=== PATIENT | female | born 1985 | race Caucasian/White ===

== ENCOUNTER 2022-10-13 16:40 | Emergency (ER) | payer BC, SELFPAY ==
--- NOTE | ~2022-10-13 | XR_ITS ---
EXAMINATION: XR foot RT min 3V DATE: 10/13/2022 17:13 INDICATION: Nontraumatic right heel pain TECHNIQUE: Dorsoplantar, two oblique and lateral views of the right foot were obtained. COMPARISON: None. FINDINGS: Bone alignment is normal. No fracture. Joint spaces are normal. No erosions. Small plantar calcaneal spur. Soft tissues are unremarkable. IMPRESSION: 1. Small plantar calcaneal spur. No acute osseous abnormality. Reviewed, dictated and finalized at location A.
[2022-10-13 16:54] VITALS: BP 132/95; PULSE 81; RESP 16; TEMP 36.4; O2SAT 98
--- NOTE | 2022-10-13 17:04 | ED.EXTPRO ---
HPI - Extremity Problem General Chief complaint: Extremity Problem,Nontraumatic Stated complaint: Right Foot Pain History of Present Illness HPI Narrative: patient presents with a 6 day history of right heel pain. no injury to foot or heel. no bruising no deformity and no swelling noted. pain to heel with weight bearing. worse in am. patient works as a nurse at [employer]. Related Data Home Medications Medication Instructions Recorded Confirmed metoprolol succinate 25 mg mg PO 10/13/22 tablet,extended release 24 hr topiramate 25 mg tablet mg 10/13/22 venlafaxine 37.5 mg mg PO 10/13/22 capsule,extended release 24 hr Allergies Allergy/AdvReac Type Severity Reaction Status Date / Time sertraline Allergy Unknown Dyspnea / Verified 03/12/15 17:59 SOB Review of Systems Review of Systems: CONSTITUTIONAL: Denies fever, chills, or sweats. EYES: Denies visual changes, redness, or discharge. ENT: Denies rhinorrhea, congestion, sore throat, or otalgia. CARDIOVASCULAR: Denies chest pain, palpitations, or edema. RESPIRATORY: Denies cough or dyspnea. GASTROINTESTINAL: Denies abdominal pain, nausea, vomiting, or diarrhea. GENITOURINARY: Denies dysuria or hematuria. SKIN: Denies rash or itching. MUSCULOSKELETAL: Denies back pain, joint pain, or myalgia. NEUROLOGIC: Denies headache, numbness, or weakness. PSYCHIATRIC: Denies anxiety or depression. PMFSH Comments At time of signature, agree with nursing past medical, surgical, social and family history. There is no relevant family history pertinent to the presenting complaint Exam Narrative: GENERAL: Well-appearing, well-nourished, and in no acute distress. HEAD: Normocephalic, atraumatic. EYES: PERRLA and EOMI. ENT: Nares clear, no rhinorrhea or epistaxis. Mucous membranes moist. NECK: Supple. CHEST: Clear to auscultation. No respiratory distress. HEART: Regular rate and rhythm. No murmur heard. Normal peripheral pulses. ABDOMEN: Soft, nontender, nondistended, normal active bowel sounds. EXTREMITIES: Normal range of motion. No edema. NORMAL DP PULSE, NORMAL CAP REFILL. NORMAL SENSATION. NVI. NO TENDERNESS TO FOOT SENSATION NVI NORMAL DORSALIS PEDIS PULSE. NORMAL MOVEMENT OF ALL TOES. NORMAL CAPILLARY REFILL. NORMAL SKIN COLOR. NO SKIN LESIONS SKIN iNTACT NO CALF PAIN NO CALF TENDERNESS NOCALF SWELLING NORMAL ROM OF KNEE.KIN INTACT. NORMAL DP PULSE, NORMAL CAP REFILL. NORMAL SENSATION. SKIN: Warm, dry, no rash. NEURO: No focal deficits. Alert and oriented x3. [place] Coma Scale Eye Opening: Spontaneous 4 [place] Coma Scale Motor: Obeys Commands 6 [place] Coma Scale Verbal: Oriented 5 [place] Coma Scale Total 15 Course Course Level of Care: Express Care Visit Vital Signs Vital signs: Vital Signs Temperature 36.4 C L 10/13/22 16:54 Pulse Rate 81 10/13/22 16:54 Respiratory Rate 16 10/13/22 16:54 Blood Pressure 132/95 H 10/13/22 16:54 Pulse Oximetry 98 10/13/22 16:54 Oxygen Delivery Room Air 10/13/22 16:54 Temperature 36.4 C L 10/13/22 16:54 Pulse Rate 81 10/13/22 16:54 Respiratory Rate 16 10/13/22 16:54 Blood Pressure 132/95 H 10/13/22 16:54 Pulse Oximetry 98 10/13/22 16:54 Oxygen Delivery Room Air 10/13/22 16:54 Discharge Plan Discharge Clinical Impression: Heel pain, Heel spur Patient Disposition: Home, Self-Care Condition: Stable Instructions: Heel Spur (ED) Additional Instructions: heel cushions good shoes with support follow up with podiatist Prescriptions: No Action venlafaxine 37.5 mg capsule,extended release 24hr PO topiramate 25 mg tablet metoprolol succinate 25 mg tablet extended release 24 hr PO Follow-up/Referrals: Cesar,MD Jenni [Primary Care Provider] - Stand Alone Forms: Work/School Release IP
== END 2022-10-13 17:41 | disposition home or self-care (01) ==
PROVIDERS: Emergency Provider Nurse Practitioner Family; PCP Family Medicine
DX: M77.31 Calcaneal spur, right foot (principal)
CPT/HCPCS: 73630; 99203; G0463

== ENCOUNTER 2023-03-05 17:56 | Emergency (ER) | payer BC, SELFPAY ==
--- NOTE | ~2023-03-05 | XR_ITS ---
EXAMINATION: XR lumbar spine 2-3V DATE: 03/05/2023 22:39 INDICATION: Low back pain TECHNIQUE: Anteroposterior and lateral views of the lumbar spine, and cone-down lateral view of the l umbosacral junction were obtained. COMPARISON: None. FINDINGS: Normal alignment. Vertebral body and disc heights are normal. Mild lower lumbar facet osteoarthritis. Bilateral hip and sacroiliac joints appear normal. Sacral arches are intact. No acute fractures. Int ernal fixation as seen at one of the hips were there appears to be a subtrochanteric fracture. IMPRESSION: 1. Mild lower lumbar facet osteoarthritis. Reviewed, dictated and finalized at location A. [employer] CLAIM[employer] REPRESENTATIVE
[2023-03-05 18:23] VITALS: BP 149/97; PULSE 73; RESP 16; O2SAT 100
[2023-03-05 21:54] VITALS: BP 138/97; PULSE 68; RESP 16; O2SAT 99
[2023-03-05] MEDS: ACETAMINOPHEN 500 MG TABLET 1000 MG PO (22:43)
[2023-03-05] MEDS: KETOROLAC 30 MG/ML VIAL (*BKC) IM (22:44)
[2023-03-05] MEDS: methocarbamoL 750 MG TABLET PO (22:44)
[2023-03-05] MEDS: LIDOCAINE 5% PATCH 1 PATCH TRANSDERM (22:44)
--- NOTE | 2023-03-05 22:57 | ED.BACK ---
HPI - Back Pain/Injury General Chief Complaint: Back Pain/Injury Stated Complaint: low back pain Time Seen by Provider: 03/05/23 22:00 History of Present Illness HPI Narrative: This is a 37-year-old female, with no significant past medical history, who presents to the emergency department complaining of low back pain for the past 2 weeks. Patient denies any recent trauma or falls. She denies the pain is dull, rated 6/10 without obvious aggravating or alleviating factors. She denies weakness, numbness, loss of bowel or bladder control or loss of sensation in the groin. She states she was seen by her primary care doctor approximately 1 week ago started on Robaxin without significant improvement. She states labs, including blood work and urinalysis were done at that time were unremarkable. Related Data Home Medications Medication Instructions Recorded Confirmed metoprolol succinate 25 mg mg PO 10/13/22 tablet,extended release 24 hr topiramate 25 mg tablet mg 10/13/22 venlafaxine 37.5 mg mg PO 10/13/22 capsule,extended release 24 hr Allergies Allergy/AdvReac Type Severity Reaction Status Date / Time sertraline Allergy Unknown Dyspnea / Verified 03/05/23 17:57 SOB Review of Systems Review of Systems: CONSTITUTIONAL: Denies fever, chills, or sweats. CARDIOVASCULAR: Denies chest pain, palpitations, or edema. RESPIRATORY: Denies cough or dyspnea. GASTROINTESTINAL: Denies abdominal pain, nausea, vomiting, or diarrhea. GENITOURINARY: Denies dysuria or hematuria. SKIN: Denies rash or itching. MUSCULOSKELETAL: Low back pain denies joint pain, or myalgia. NEUROLOGIC: Denies headache, numbness, dizziness, or weakness. PSYCHIATRIC: Denies anxiety or depression. PMFSH Past Medical History Medical History (Updated 03/05/23 @ 23:52 by Kevin Pal MD) Depression Surgical History Surgical History (Updated 03/05/23 @ 22:58 by Kevin Pal MD) No significant past surgical history Social History Social History (Updated 03/05/23 @ 22:58 by Kevin Pal MD) Smoking status: Never smoker Alcohol intake: never Substance use: never Exam Narrative: GENERAL: Well-appearing, well-nourished, and in no acute distress. HEAD: Normocephalic, atraumatic. EYES: PERRLA and EOMI. CHEST: Clear to auscultation. No respiratory distress. No wheezes rales or rhonchi HEART: Regular rate and rhythm. No murmur heard. Normal peripheral pulses. ABDOMEN: Soft, nontender, nondistended, normal active bowel sounds. BACK: No midline spine tenderness to palpation, step-off or crepitus. Paraspinal tenderness at approximately L2-L5 bilaterally. No overlying erythema or induration noted EXTREMITIES: Normal range of motion. No edema. SKIN: Warm, dry, no rash. NEURO: No focal deficits. Alert and oriented x3. PSYCH: Normal mood and affect. Course Course Emergency Course: 23:49 - X-ray demonstrates mild bilateral lower lumbar osteoarthritis but is otherwise not concerning for fracture dislocation. On re-evaluation, the patient states her pain is improved. I suspect her pain is musculoskeletal in nature. Will discharge with recommendations for NSAIDs and lidocaine patches and continuation muscle relaxers for pain. Discussed return and emergency precautions including signs/symptoms of cauda equina. The patient voiced understanding and is comfortable with the plan. All questions answered to her satisfaction. Vital Signs Vital signs: Vital Signs Pulse Rate 73 03/05/23 18:23 Respiratory Rate 16 03/05/23 18:23 Blood Pressure 149/97 H 03/05/23 18:23 Pulse Oximetry 100 03/05/23 18:23 Oxygen Delivery Room Air 03/05/23 18:23 Pulse Rate 68 03/05/23 21:54 Respiratory Rate 16 03/05/23 21:54 Blood Pressure 138/97 H 03/05/23 21:54 Pulse Oximetry 99 03/05/23 21:54 Oxygen Delivery Room Air 03/05/23 18:23 MDM - Back Pain/Injury MDM Narrative Medical decision making
== END 2023-03-06 00:14 | disposition home or self-care (01) ==
PROVIDERS: Emergency Provider Preventive Medicine Aerospace Medicine; PCP Family Medicine
DX: S39.012A Strain of muscle, fascia and tendon of lower back, initial encounter (principal); F32.A Depression, unspecified; M47.816 Spondylosis without myelopathy or radiculopathy, lumbar region; X58.XXXA Exposure to other specified factors, initial encounter
CPT/HCPCS: 72100; 81025; 96372; 99283; A9270; J1885